=== PATIENT | male | born 1930 | race Caucasian/White ===

== ENCOUNTER 2016-11-09 01:20 | Day surgery (SDC) | payer MEDICARE ==
[~2016-11-09] VITALS: Ht 185.4 cm; Wt 90.0 kg
[2016-11-09] VITALS (11 sets, daily range): BP systolic 101–153; BP diastolic 52–92; PULSE 63–73; RESP 14–23; O2SAT 95–96
[~2016-11-09 01:20] MED LIST: ASPI325T32 PO; CARB1TAB14 PO; CYAN100T PO; ERGO400T7 PO; HYDR25TA4 PO; LISI40TA PO; OMEG500C PO
[2016-11-09] MEDS ORDERED: 0.9% Sodium Chloride 1,000 ML IV ONE (06:56)
[2016-11-09] MEDS ORDERED: diphenhydrAMINE 25 mg Capsule PO ONE (07:00)
[2016-11-09 08:03] LABS: BASOPHILS % (AUTO) 0.3 % (0-3); MONOCYTES % (AUTO) 5.7 % (4-12); Mean Corpuscular Hemoglobin 28.3 pg (27.0-35.0); Mean Corpuscular Volume 87.9 fL (81-100); NEUTROPHILS % (AUTO) 70.7 % (40-74); Platelet Count 218 bil/L (150-400)
[2016-11-09 08:19] LABS: INR 0.96 ratio
[2016-11-09] MEDS ORDERED: Heparin 5,000 Units/500 mL NS Premix IV ONE ×3 (09:16→11:12)
[2016-11-09] MEDS ORDERED: Heparin 1,000 Units/500 mL NS Premix IV ONE ×2 (09:16→11:12)
[2016-11-09] MEDS ORDERED: fentaNYL-PF 50 mCg/mL 2 mL Inj ONE ×3 (09:33→11:33)
[2016-11-09] MEDS ORDERED: Nitroglycerin 50,000 mcg/250 mL D5W Premix IV ONE ×2 (09:40→11:12)
[2016-11-09] MEDS ORDERED: Heparin 1,000 Unit/mL 10 mL Inj ONE ×2 (10:26→11:12)
[2016-11-09] MEDS ORDERED: METO25TA6 PO (15:15)
[2016-11-09] MEDS ORDERED: LIP40 PO (15:15)
--- NOTE | 2016-11-09 16:42 | DI95 ---
[address] [address] INTERVENTIONAL CARDIAC CATHETERIZATION PATIENT: JIMENEZ DE DIOS : 1930 MR#: [id number] ADMIT: 11/09/2016 JOB ID: [id number] DOS:11/09/16 PROCEDURE: Selective right and left coronary angiography, left heart catheterization, attempted percutaneous intervention on the first obtuse marginal branch of the circumflex. INDICATION: Abnormal stress test. PROCEDURAL DETAILS: The procedure was done via right femoral approach using a 6-Vietnamese system. ANGIOGRAPHIC FINDINGS: 1. Left main short. No significant disease. 2. LAD In its mid to proximal segment has disease of about 30% to 40%. LAD is a very tortuous vessel. 3. The ramus intermedius is a moderate-caliber vessel. In its ostium and proximal part, it has a 60% to 70% lesion. 4. Circumflex is nondominant. The first large obtuse marginal branch is totally occluded. It comes off at an adverse angle and then appears to make a tight 180-degree turn. 5. The right coronary artery is a moderate caliber vessel. It has a proctor's crook in the beginning. Distally it has a 50% to 60% lesion. 6. Left heart catheterization revealed an LVEDP of 8. There was no gradient upon pullback. LVEF is estimated to be 60%. INTERVENTIONAL REPORT: We made a brief attempt to open up the obtuse marginal branch. We started off with a Voda guide and a Runthrough wire which was placed in the distal circumflex. A Choice PT wire was then used to get into this totally occluded branch which we successfully were able to. However, because of tortuosity and the total occlusion, we could not advance the wire. A Fine Cross was then used for backup support. Despite that, we could not advance the wire. There was really no support and the wire kept prolapsing back into the circumflex. Procedure was then terminated. In summary, this gentleman has moderately severe disease in the ostium of his ramus intermedius and the circumflex is totally occluded. His RCA has borderline lesion and his LAD has mild to moderate blocking. The best treatment for this would be aggressive medical therapy. If his symptoms progress, consideration can be given to bypass grafting. OWEN
--- NOTE | 2016-11-09 18:00 | NUR ---
Pt discharged to home, accompanied by family member. Pt's VSS, Rt groin puncture site CDI, IV's discontinued intact. Pt given all discharge instructions and had no further questions at time of d/c.
== END 2016-11-09 23:59 | disposition home or self-care (01) ==
LOC: SOUO 01:20
PROVIDERS: ATTEND Internal Medicine Cardiovascular Disease
DX: I25.10 Atherosclerotic heart disease of native coronary artery without angina pectoris (principal); I25.82 Chronic total occlusion of coronary artery; I25.9 Chronic ischemic heart disease, unspecified; I44.0 Atrioventricular block, first degree; I10 Essential (primary) hypertension; I48.91 Unspecified atrial fibrillation; N40.1 Benign prostatic hyperplasia with lower urinary tract symptoms; Z79.82 Long term (current) use of aspirin
CPT/HCPCS: 80048; 85025; 85610; 93458; 99152; 99153; C1760; C1769; C1887; J1644; J2060; J2250; J3010; J7030; Q9967

== ENCOUNTER 2016-11-18 11:41 | Inpatient (IN) | payer MEDICARE ==
[2016-11-18] VITALS (7 sets, daily range): BP systolic 110–131; BP diastolic 49–72; PULSE 41–67; RESP 14–24; O2SAT 94–98
[~2016-11-18] VITALS: Ht 188 cm; Wt 92.6 kg
[~2016-11-18 11:41] MED LIST changes: -CARB1TAB14 PO; +LIP40 PO; +METO25TA6 PO
--- NOTE | 2016-11-18 12:01 | ED.REPORT ---
HPI-Chest Pain 40 and Over Date of Service Nov 18, 2016 ED Provider: Dr. Redding 86 y/o male pt with a hx of CAD, HTN, paroxysmal A-fib presents to the ED after his PCP noticed a 7 second pause in his heart rate as per Holter monitor. Pt also complains of mild SOB, exacerbated by walking but denies chest pain, lightheadedness and dizziness. He was recommended to come here by Motor Builder Assembler Dr. Hubbard for pacemaker placement. Nursing Notes Stated Complaint: PACU Nursing Notes Reviewed: Yes Allergies: Coded Allergies: No Known Allergies (Unverified Allergy, Unknown, 11/18/16) Scheduled Aspirin (Aspirin) 325 Mg Tablet 325 MG PO HS Atorvastatin (Lipitor) 40 Mg Tablet 20 MG PO QAM Cyanocobalamin (Vitamin B-12) (Vitamin B-12) 100 Mcg Tablet 100 MCG PO DAILY Ergocalciferol (Vitamin D2) (Vitamin D2) 400 Unit Tablet 400 UNIT PO DAILY Hydrochlorothiazide (Hydrochlorothiazide) 25 Mg Tablet 25 MG PO DAILY Lisinopril (Lisinopril) 40 Mg Tablet 40 MG PO DAILY Stephan-3 Fatty Acids/Fish Oil (Fish Oil Pearls Softgel) 1 Each Capsule 1 EACH PO DAILY General Time Seen by MD: 12:00 Chief Complaint Other (Sinus pause) Hx Obtained From: Patient Arrived By: Walk-in Sudden in Onset?: Yes Onset Occurred: Just prior to arrival Symptom Duration: Since onset Severity: Current: No pain currently Severity: Maximum: No pain Recent Healthcare: Recent doctor visit Similar Sx Previous: No Past Medical History Past Medical History CAD Arthritis Right Inguinal Hernia (s/p surgery) Paroxysmal a-fib Basal cell carcinoma Hypertension Past Surgical History Left Hip surgery Cataracts (surgically corrected) Smoking History Never Smoker Social History Alcohol Use: Denies alcohol use Ambulatory Status Independent Review of Systems Constitutional: Denies: Chills, Fever Respiratory: Reports: Shortness of breath, Denies: Non-productive cough Cardiovascular: Reports: Dyspnea on exertion, Denies: Chest pain GI: Denies: Abdominal pain, Nausea, Vomiting Neurologic: Denies: Dizziness, Lightheaded, Numbness Complete sys rev & neg: except as marked. Physical Exam Initial Vital Signs Vital Signs (First) Date Time Temp Pulse Resp B/P Pulse Ox O2 Delivery O2 Flow Rate FiO2 11/18/16 11:41 36.0 41 22 131/55 97 Room Air Initial VS: Reviewed, Vital signs abnormal Head / Eyes: Atraumatic, Normocephalic, PERRL ENT: Mucous membranes moist, Conjunctiva normal, No scleral icterus Neck: Supple, Full range of motion Extremities: Vascular intact, Neuro intact, No tenderness Skin: Warm, Dry, No cyanosis Neurologic: Alert, Oriented, Nonfocal Psychiatric: Mood/affect normal, Behavior normal, Normal thought content General/Constitutional: Awake, Alert, No acute distress, Cooperative Respiratory / Chest: Atraumatic, Breath sounds NL, Breath sounds = bilat, No respiratory distress, No rales, No rhonchi, No wheezing, No retractions Cardiovascular: Regular rhythm, Heart sounds NL, No murmurs Heart Rate / Rhythm: Positive: Bradycardia Trace edema bilaterally in lower extremities. Abdomen: Atraumatic, Soft, Non-tender Interpretation & Diagnostics Lab Results Interpretation Result Diagram: 11/18/16 1212 11/18/16 1212 Test 11/18/16 12:12 11/18/16 12:38 White Blood Count 6.6th/mm3 (3.8-10.1) Red Blood Count 4.95mil/mm3 (4.40-5.80) Hemoglobin 14.1g/dL (13.8-17.2) Hematocrit 43.2% (41.0-50.0) Mean Corpuscular Volume 87.3fL (81-100) Mean Corpuscular Hemoglobin 28.5pg (27.0-35.0) Mean Corpuscular Hemoglobin Concent 32.6% (32.0-37.0) Red Cell Distribution Width 14.1% (12.3-15.4) Platelet Count 179bil/L (150-400) Neutrophils (%) (Auto) 76.7% (40-74) Lymphocytes (%) (Auto) 14.9% (14-46) Monocytes (%) (Auto) 5.9% (4-12) Eosinophils (%) (Auto) 2.0% (0-5) Basophils (%) (Auto) 0.3% (0-3) Prothrombin Time 10.9sec (8.1-12.5) Prothromb Time International Ratio 1.02ratio Sodium Level 141mEq/L (134-144) Potassium Level 4.2mEq/L (3.5-5.2) Chloride Level 100mEq/L (97-108) Carbon Dioxide Level 25mmol/L (18-29) Blood Urea Nitrogen 27mg/dL (8-27) Creatinine 0.93mg/dL (0.76-1.27) Estimat Glomerular Filtration Rate 82mL/min (>59) Glucose Level 127mg/dL (60-99) Calcium Level 10.4mg/dL (8.5-10.1) Magnesium Level 1.7mg/dL (1.6-2.6) Total Bilirubin 0.6mg/dL (0.0-1.2) Aspartate Amino Transf (AST/SGOT) 18U/L (0-50) Alanine Aminotransferase (ALT/SGPT) 13U/L (0-44) Alkaline Phosphatase 88U/L (25-160) Troponin T < 0.010ug/L (0.0-0.011) Total Protein 7.7g/dL (6.4-8.4) Albumin 4.4g/dL (3.4-5.0) Thyroid Stimulating Hormone (TSH) 1.880uIU/mL (0.450-4.500) Free Thyroxine 1.32ng/dL (0.82-1.77) Hold Albert Top Tube Received (Received) ECG Interpretation ECG Interpretation: Sinus bradycardia rate 53 Right bundle branch block No ST elevation Possible ST depression in V3 Time: 12:13 Interpreted by: ED physician X-Ray Chest Interpretation Chest Xray Interpretation: IMPRESSION: No acute process. Dictated by: Ronald Boyer M.D. on 11/18/2016 at 13:35 Approved by: Ronald Boyer M.D. on 11/18/2016 at 13:35 View: Portable, 1 view Interpretation / Wet Read by: Interpret - Radiologist Re-Eval/Medical Decision Med Decision/Clinical Course 86-year-old male sent in by optical worker for pacemaker placement given Holter monitor with positives up to 7.5 seconds. Patient does report some shortness of breath but is otherwise asymptomatic. Bradycardic into the 30s on our monitor though asymptomatic. Discussed with optical worker who recommended admission for pacemaker placement. Troponins are negative. Source of Hx: Old records, Family Time of Eval: 14:11 Re-Evaluation/Progress Note: Pt rechecked. Pt informed of need for admission. Pt understands and agrees with plan for admission. All questions addressed. Consultation #1: Referral / Consult Name: Robert Hubbard MD Consulted With: Cardiology Call Returned at: 12:50 Floor Surfacer: Will see patient, Agrees with eval, Agrees with plan Note: Will arrange for pacemaker placement. Discussed the case prior to the patient arriving. Consultation #2: Referral / Consult Name: Pedro Carreno MD Call Returned at: 13:45 Floor Surfacer: Will see patient, Agrees with eval, Agrees with plan, Accepts admit Counseled Regarding: Diagnosis, Lab results, Need for admission Discharge & Departure Primary Impression: Bradycardia Additional Impression: Sinus pause Disposition: ADMITTED TO HOSPITAL Discharge Condition All VS Reviewed: Yes Condition: Stable Referrals: Andrés Guevara MD (PCP) Crit Care Except Billable Proc Time Spent: 105-134 minutes (125) Services Performed: Patient management by me, Time spent at bedside, Reviewing test results, Reviewing imaging, Discussing patient care, Documentation in record, Time with fam/surrogate Scribe Attestation Portions of this note were transcribed by Corinne Gamez and Damon Do. I, , personally performed the history, physical exam and medical decision-making;I reviewed and confirmed the accuracy of the information in the transcribed note. Signed by Corinne Gamez and Clif Morse. 11/18/16 14:22. copies to: Andrés Guevara MD, Ben M MD Nov 18, 2016 12:01 Corinne Gamez Nov 18, 2016 12:09 DAMON DO Nov 18, 2016 13:56
[2016-11-18 12:23] LABS: BASOPHILS % (AUTO) 0.3 % (0-3); MONOCYTES % (AUTO) 5.9 % (4-12); Mean Corpuscular Hemoglobin 28.5 pg (27.0-35.0); Mean Corpuscular Volume 87.3 fL (81-100); NEUTROPHILS % (AUTO) 76.7 % (40-74); Platelet Count 179 bil/L (150-400)
[2016-11-18 13:19] LABS: TROPONIN T < 0.010 ug/L (0.0-0.011)
[2016-11-18 13:22] LABS: Magnesium 1.7 mg/dL (1.6-2.6)
--- NOTE | 2016-11-18 13:37 | DRSVH ---
PROCEDURE: X-RAY CHEST ONE VIEW, PORTABLE ([id number]) INDICATIONS: chest pain , low heartrate TECHNIQUE: One view of the chest was acquired. COMPARISON: None. FINDINGS: Surgical changes and devices: None. Lungs and pleura: No pleural effusions or pneumothorax. Lungs are clear. Mediastinum: Mediastinal contours appear normal. Heart size is normal. Bones and chest wall: No suspicious bony lesions. Overlying soft tissues appear unremarkable. IMPRESSION: No acute process. Dictated by: Ronald Boyer M.D. on 11/18/2016 at 13:35 Approved by: Ronald Boyer M.D. on 11/18/2016 at 13:35
[2016-11-18 14:36] LABS: INR 1.02 ratio
[2016-11-18] MEDS ORDERED: OMEG-101 PO (14:37)
[2016-11-18] MEDS ORDERED: Alum-Mag Hydrox-Simeth 30 mL Suspension PO PRN ×2 (14:40→14:55)
[2016-11-18] MEDS ORDERED: Ondansetron 2 mg/mL 2 mL Inj IVPUSH PRN (14:40)
[2016-11-18] MEDS ORDERED: Polyethylene Glycol (PEG) 17 Gm Powder PO PRN (14:55)
--- NOTE | 2016-11-18 15:33 | NUR ---
Admit to [facility] Patient report called by ED nurse to [facility] nurse. Patient arrived t [facility] room 3007 via gurney. Patient was assisted by staff to bed. Patient is a 1-2 person extensive assist with FWW with transfer. Patient oriented to room, call light system, staff, visiting hours and TV. Patient denied pain, SOB, or nausea. Patient vital signs stable with the exception of HR fluctuating between 47-61. Patient nephew in room at time of admit.
--- NOTE | 2016-11-18 15:34 | CONS ---
[address] [address] CONSULTATION REPORT PATIENT: JIMENEZ DE DIOS : 1930 MR#: [id number] ADMIT: 11/18/2016 JOB ID: [id number] DATE OF SERVICE: 11/18/2016 CARDIOLOGY CONSULTATION: CHIEF COMPLAINT: Abnormal results on cardiac monitoring. HISTORY OF PRESENT ILLNESS: This 86-year-old gentleman was brought to the hospital urgently from his home because of his ZIO monitor showing pauses of up to 7-1/2 seconds. These occurred during daytime. The patient is denying any dizziness, lightheadedness or passing out. For most part, he is homebound. He lives in a longterm. He is not very active. He was initially referred to me about three weeks ago for cardiac evaluation. He needs to have his right hip replaced. His stress test was abnormal and showed myocardial ischemia in inferolateral segments. He subsequently underwent angiography. He was found to have an occluded obtuse marginal branch which came off at a very adverse angle. It was also calcified. A brief attempt was made to recanalize it. When it became apparent that this would be a long and complex procedure, the intervention was canceled at that point. Since then, the patient is feeling much better and has not had any complaints. In fact, he was a little bit surprised that he was called to the hospital. PAST MEDICAL HISTORY: Significant for: 1. Atrial fibrillation. 2. Hypertension. 3. BPH. 4. Coronary artery disease. 5. Parkinson disease. MEDICATIONS AT HOME: 1. Aspirin. 2. Carbidopa 25/levodopa 100. 3. Vitamin D 2 fish oil. 4. Hydrochlorothiazide. 5. Lisinopril 20 mg daily. 6. Vitamin B12. PERSONAL HISTORY: Nonsmoker, nondrinker. FAMILY HISTORY: Noncontributory. ALLERGIES: None. REVIEW OF SYSTEMS: Comprehensive review of system was done. Pertinent positives are fatigue and muscle weakness and easy bruising. Rest is as per HPI. PHYSICAL EXAMINATION: On examination elderly gentleman who looks his age. Pulse 60, irregular, blood pressure 120/60. Neck: Supple. No JVD. Chest: Clear. Heart sounds: S1-S2 are irregular. There are no gallops. Abdomen: Soft. Extremities: Negative for CCE. CHURCH ADMINISTRATOR: Awake, alert, oriented. A resting tremor is noted. Tele strips while the patient is in the ED show no significant pauses. At times it appears that the patient might be in a Wenckebach type for rhythm though the baseline is very poor on those and this could be AFib with irregularity. ASSESSMENT AND PLAN: This gentleman is having long pauses of up to 7 seconds. He needs a pacemaker. I have discussed this with the patient. He is willing to proceed ahead with the same. Dr. Grajeda has been informed. Once he has his pacemaker, he can then proceed ahead with his hip replacement. In the interim, I would recommend checking his TSH as well.
[2016-11-18] MEDS: Sodium Chloride LOK Flush 10 mL Syringe IVFLUSH SCH (16:31)
--- NOTE | 2016-11-18 17:18 | PCM.HPMED ---
Subjective Date of Service Nov 18, 2016 Primary Provider: Admitting Physician: Pedro Carreno MD Primary Care Physician: Andrés Guevara MD Attending Physician: Pedro Carreno MD Admit Status: From the Emergency Department, Full Admit, Admit to Blue Team Chief Complaint: Patient was called in by entertainment manager due to bradycardia and a pulse of 7.5 seconds on ZIO monitor History of Present Illness: 86-year-old gentleman with past medical history of CAD, hypertension, atrial fibrillation was called in by entertainment manager due to bradycardia and a pause of 7.5 seconds on ZIO monitor . Patient denies any symptoms currently. Patient started to have exertional dyspnea in July. He was also being evaluated for hip replacement. He was sent for cardiology evaluation due to abnormal stress test. He underwent cardiac cath on 11/09/16 and was found 1200 mL of disease in the ostium of ramus intermedius and completely occluded circumflex. An attempt to open was unsuccessful. Patient states his exertional dyspnea actually resolved after his cardiac catheterization on 11/09. He was placed on ZIO monitor prior to cardiac cath. He was noted to have 7.5 seconds of pause and called in for evaluation of pacemaker. Denies chest pain. He is still interested in undergoing hip replacement. ED course: Junctional rhythm on EKG, A. fib with slow rate on monitor,rate as low as high 30's. Remained asymptomatic. Hemodynamically stable. Lab unremarkable Review of Systems: A compressive review of systems performed. Pertinent positives and negatives included in history of present illness. Allergies Coded Allergies: No Known Allergies (Unverified Allergy, Unknown, 11/18/16) Home Medications Aspirin (Aspirin) 325 Mg Tablet 325 MG PO HS Atorvastatin (Lipitor) 40 Mg Tablet 20 MG PO QAM Cyanocobalamin (Vitamin B-12) (Vitamin B-12) 100 Mcg Tablet 100 MCG PO DAILY Ergocalciferol (Vitamin D2) (Vitamin D2) 400 Unit Tablet 400 UNIT PO DAILY Hydrochlorothiazide (Hydrochlorothiazide) 25 Mg Tablet 25 MG PO DAILY Lisinopril (Lisinopril) 40 Mg Tablet 40 MG PO DAILY Kirby-3 Fatty Acids/Fish Oil (Fish Oil Pearls Softgel) 1 Each Capsule 1 EACH PO DAILY PMH CAD diagnosed recently on medical treatment Arthritis Right Inguinal Hernia (s/p surgery) Paroxysmal a-fib used to be on warfarin. Stopped due to bleeding complications by patient years ago Basal cell carcinoma Hypertension Surgical History Left Hip surgery Cataracts (surgically corrected) Bilateral inguinal hernia repair Appendectomy in 50's Family History Reviewed and unremarkable Social History Hx Alcohol Use: No Hx Substance Use: No Smoking Status: Never Smoker Exam Vital Signs Vital Sign - Last Date Time Temp Pulse Resp B/P Pulse Ox O2 Delivery O2 Flow Rate FiO2 11/18/16 15:56 36.6 55 24 125/72 96 Room Air Exam Gen. patient is lying comfortably in hospital bed HEENT: Head is normocephalic atraumatic, Pupils equal and reactive, extraocular movements intact, Lungs clear to auscultation bilaterally Heart bradycardic, no murmur Abdomen soft nontender without hepatosplenomegaly Extremities pulses are present dorsalis pedis posterior tibialis and radial. 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 -TSH pending -Pacing pad in place -for pacemaker placement probably tomorrow -Atropine when necessary when symptomatic, does not seem he needs # Recent diagnosis of CAD -Continue aspirin and statin -no BB due to bradycardia # History of atrial fibrillation -Anticoagulation stopped by patient due to bleeding #Osteoarthritis -Pain controlled Full code ,names Clotilde Dia as POA tel [phone] Patient admitted under inpatient status with expected length of stay > 2 midnights for severity of present symptoms, complexities of treatment plan and risk for adverse events Pedro Carreno MD Nov 18, 2016 17:18
[2016-11-19] VITALS (15 sets, daily range): BP systolic 104–136; BP diastolic 47–69; PULSE 52–71; RESP 16–23; O2SAT 95–98
[2016-11-19] MEDS: Sodium Chloride LOK Flush 10 mL Syringe IVFLUSH SCH ×3 (00:15→17:55)
--- NOTE | 2016-11-19 05:03 | NUR ---
bradycardia Tele - pepper mostly in the 40s with pauses, but dipped into the 20's few times per tele rn. pt asymptomatic. pacer pads on pt's chest. NPO since midnight for pacer placement this AM. pt compliant. denies pain or discomfort. uses urinal in bed. bed alarm on for safety.
[2016-11-19 05:47] LABS: BASOPHILS % (AUTO) 0.2 % (0-3); EOSINOPHILS % (AUTO) 2.8 % (0-5); MONOCYTES % (AUTO) 8.9 % (4-12); Mean Corpuscular Hemoglobin 28.7 pg (27.0-35.0); Mean Corpuscular Volume 87.7 fL (81-100); NEUTROPHILS % (AUTO) 65.7 % (40-74); Platelet Count 137 bil/L (150-400)
[2016-11-19] MEDS ORDERED: Vancomycin Inj 1,000 MG in IV Premix 1 EACH IV ONE (06:00)
[2016-11-19 06:03] LABS: INR 1.05 ratio
--- NOTE | 2016-11-19 06:23 | NUR ---
pause Pt had a 6sec pause around 04:34 per teletypesetter operator; remains asymptomatic. able to wake up w/o difficulty and w/o complaints. Tele SB now in 40s-50s with intermittent short pauses. will closely monitor.
[2016-11-19] MEDS: Omega-3 Fatty Acids 1,000 mg Capsule PO SCH (07:38)
[2016-11-19] MEDS ORDERED: Lisinopril 40 Tablet PO SCH (08:30)
--- NOTE | 2016-11-19 10:05 | NUR ---
Off the unit Pt taken off the unit to clam bed laborer for pacer placement, IV x [address], PJ bottoms and undergarments removed. NO complains of increased chest discomfrt/pressure. VSS. Vancomycin pulled, will accompany pt for administration in clam bed laborer. Addendum: 11/19/16 at 1428 by NEDA NEGRON RN Back on unit, no complains of increased pain or SOB. Sling in place. IV SL, RA. Micropore dressing C/D/I no signs of bleeding or hematoma. Call light within reach, will continue to monitor
[2016-11-19] MEDS ORDERED: fentaNYL-PF 50 mCg/mL 2 mL Inj ONE (10:19)
[2016-11-19] MEDS ORDERED: Vancomycin 1,000 mg Inj ONE (10:25)
[2016-11-19] MEDS ORDERED: Water for Injection 50 ML IV ONE (10:25)
[2016-11-19] MEDS ORDERED: 0.9% Sodium Chloride 250 ML ONE (10:25)
[2016-11-19] MEDS ORDERED: Heparin 5,000 Units/500 mL NS Premix IV ONE (10:25)
[2016-11-19] MEDS ORDERED: Bupivacaine-MPF 0.5% 30 mL Inj ONE (10:31)
--- NOTE | 2016-11-19 11:54 | DRSVH ---
[facility] [address] [place] [address] Echocardiogram Report Name: JIMENEZ DE DIOS [facility]Study [facility] e: 11/19/2016 Height: 74 in Hospital Exam Location: [facility] Weight: 204 lb Gender: Male BSA: 2.2 m2 : 1930 Age: 86 yrs BP: 107/54 mmHg Reason For Study: MOBITZ II AV BLOCK Ordering Physician: Performed By: Raghavendra Hill Interpretation Summary 1) Normal left ventricular thickness, size, wall motion, and systolic function (EF 55-60%). 2) Mildly dilated right ventricle with normal function. 3) No significant valvular abnormalities. 4) Mildly elevated pulmonary artery pressures, with systolic pulmonary artery pressures of 37mmHg + CVP. 5) Borderline dilated aortic root at the sinus of valsalva (diameter 4.1cm). 6) No prior Echo available for comparison. Procedure: A two-dimensional transthoracic echocardiogram with color flow and Doppler was performed. The study quality was technically adequate. There is no prior echocardiogram noted for this patient. The patient was in sinus bradycardia with heart rates between 54-64 bpm during the exam. Left Ventricle: The left ventricle is normal in size. There is normal left ventricular wall thickness. The ejection fraction is estimated to be 55-60%. Left ventricular systolic function is normal. There are no obvious focal wall motion abnormalities noted but poor endocardial definition reduces the sensitivity for the detection of such. Right Ventricle: The right ventricle is mildly dilated. The right ventricular systolic function is normal. Atria: The left atrium is not well visualized. Right atrium not well visualized. There is no Doppler evidence for an atrial septal defect. Mitral Valve: The mitral valve is normal. There is no mitral regurgitation noted. Aortic Valve: The aortic valve is normal in structure and function. There is no aortic valve stenosis. No aortic regurgitation is present. Tricuspid Valve: The tricuspid valve is normal. There is mild tricuspid regurgitation. Right ventricular systolic pressure is estimated to be 37 mmHg plus the clinically estimated CVP which cannot be estimated on this exam. Pulmonic Valve: The pulmonic valve is not well seen, but is grossly normal. There is mild pulmonic regurgitation. Great Vessels: The aortic Sinus(es) of Valsalva are borderline dilated. The ascending aorta is normal in size. The aortic arch is at the upper limits of normal in size. The pulmonary artery is normal size. The inferior vena cava was not well visualized. Pericardium/ Pleura There is no pericardial effusion. There is no pleural effusion. MMode/2D Measurements & Calculations LVIDd LVOT diam: 2.3 cm LV arango. diameter/BSA LV sys. diameter/BSA : 5.0 cm AoV Openin.0 cm (cm/m^2): 2.3 (cm/m^2): 1.5 LVIDs Ao root diam: 4.1 cm : 3.3 cm asc Aorta Diam FS: 35.3 % EPSS Ao Arch Diam (Prox : 1.cm Trans): 3.4 cm IVSd : 1.cm LVPWd : 0.8cm Doppler Measurements & Calculations Ao V2 max: 119.7 cm/secMV E max antolin MV E/A: 0.76 TR max antolin Ao max P.7 mmHg : 56.7 cm/sec Med Peak E' Antolin : 303.0 cm/sec Ao mean P.1 mmHg MV A max antolin TR max PG LVOT Max Antolin : 75.1 cm/sec E/E' med: 9.2 : 36.7 mmHg : 77.8 cm/sec Lat Peak E' Antolin PA V2 max : 121.1 cm/sec LARRY(I,D): 2.8 cm E/E' lat: 7.4 PA mean PG sev ratio: 0.66 E/e' average: 8.3 : 3.4 mmHg MV dec time: 0.25 sec Ao V2 mean LV V1 max PG PA V2 mean : 84.6 cm/sec : 88.1 cm/sec Ao V2 VTI LV V1 VTI: 15.7 cmPA pr(Accel) : 38.8 mmHg LARRY(V,D): 2.8 cm2 LARRY indexed to [facility] (cm^2/m^2): 1.3 Reading Physician:11:53 AM
[2016-11-19] MEDS ORDERED: HYDROcodone-APAP 5-325 mg Tablet PO PRN (12:00)
--- NOTE | 2016-11-19 12:57 | NUR ---
PILO Report called from Aida DAIGLE, dual chamber pacer placed L Upper chest, Micropore dressing C/D/I, No complains of increased pain. Pt sitting up and eating lunch, has not voided at this time. Able to come off bedrest no sooner than 1410. Sling to be placed prior to [place] [facility]
--- NOTE | 2016-11-19 13:18 | DRSVH ---
PROCEDURE: X-RAY CHEST ONE VIEW, PORTABLE ([id number]) INDICATIONS: For new leads placed TECHNIQUE: One view of the chest was acquired. COMPARISON: [facility], CR, XR CHEST 1VW (PORTABLE), 11/18/2016, 12:31. FINDINGS: Surgical changes and devices: Left cardiac pacer present in expected position. Lungs and pleura: No pleural effusions or pneumothorax. Lungs are clear. Mediastinum: Mediastinal contours appear normal. Heart size is normal. Bones and chest wall: No suspicious bony lesions. Overlying soft tissues appear unremarkable. IMPRESSION: No immediate complications status post cardiac pacemaker placement. Dictated by: Asim CARSON Interpreted: Elayne Montoya MD on 11/19/2016 at 13:17 Transcribed by: JASON on 11/19/2016 at 13:18 Approved by: Elayne Montoya M.D. on 11/23/2016 at 17:03
--- NOTE | 2016-11-19 14:32 | NUR ---
PILO POST PACEMAKER PT WAS RECEIVED FROM INSPECTOR FIBROUS WALLBOARD AT 1210. LEFT UPPER CHEST DRSG HAS REMAINED C/D/I. POST CXR AND EKG WERE OBTAINED. PT AWAKE AND TAKING MEAL WITHOUT DIFFICULTY. HE DENIES ANY PAIN. SLING WAS PLACED TO LEFT ARM AND PT IS AWARE OF RESTRICTIONS FOR THAT ARM. REPORT CALLED TO NEDA Garcia RN AND PT AND HIS NURSING CARE WERE TRANSFERRED BACK TO ROOM 3007 AT 1410. TELE CONFIRMED WITH WOOD FINISHER APPRENTICE.
[2016-11-19] MEDS: 0.9% Sodium Chloride 1,000 ML IV SCH (14:48)
--- NOTE | 2016-11-19 15:24 | PCM.PNMED ---
Subjective Date of Service Nov 19, 2016 Subjective Remains asymptomatic. Had pause of 6 seconds overnight. Awaiting pacemaker placement Exam Vital Signs Vital Sign - Last Date Time Temp Pulse Resp B/P Pulse Ox O2 Delivery O2 Flow Rate FiO2 11/19/16 15:00 36.6 63 18 114/65 97 Room Air Intake and Output 11/18/16 11/18/16 11/19/16 Cumulative From/Thru 15:00 23:00 07:00 11/18/16 11:41 - 11/19/16 06:37 Intake Total 236 ml 700 ml 936 ml Output Total 275 ml 500 ml 775 ml Balance -39 ml 200 ml 161 ml Intake Oral 236 ml 700 ml 936 ml Output Urine Total 275 ml 500 ml 775 ml Exam Gen. patient is lying comfortably in hospital bed HEENT: Head is normocephalic atraumatic, Pupils equal and reactive, extraocular movements intact, Lungs clear to auscultation bilaterally Heart bradycardic, no murmur Abdomen soft nontender without hepatosplenomegaly Extremities pulses are present dorsalis pedis posterior tibialis and radial. tSkin is warm and dry there are no rashes, Psych alert and oriented to person place and time Neuro cranial nerves II through XII are grossly intact Lymph: There is no lymphadenopathy appreciated in the cervical supra infraclavicular regions : no peters IVs and Medications Medications Reviewed: Medications were reviewed in detail Lab and Diagnostics Result Diagram: 11/19/1652411/19/16524 Cardiac Echo Impressions Interpretation Summary 1) Normal left ventricular thickness, size, wall motion, and systolic function (EF 55-60%). 2) Mildly dilated right ventricle with normal function. 3) No significant valvular abnormalities. 4) Mildly elevated pulmonary artery pressures, with systolic pulmonary artery pressures of 37mmHg + CVP. 5) Borderline dilated aortic root at the sinus of valsalva (diameter 4.1cm). 6) No prior Echo available for comparison. Assessment & Plan 86-year-old gentleman with past medical history of CAD, hypertension, atrial fibrillation was called in by check out clerk due to bradycardia and a pause of 7.5 seconds on ZIO monitor # Bradycardia and 7.5 second pause due to tachybradycardia syndrome -TSH 1.88 -Pacing pad in place -for pacemaker placement today -Atropine when necessary when symptomatic, does not seem he needs # Recent diagnosis of CAD -Continue aspirin and statin -no BB due to bradycardia # History of atrial fibrillation -Anticoagulation stopped by patient due to bleeding #Osteoarthritis -Pain controlled -Patient undergoing evaluation for right hip replacement out patient. Full code ,names Clotilde Dia as POA tel [phone] Patient admitted under inpatient status with expected length of stay > 2 midnights for severity of present symptoms, complexities of treatment plan and risk for adverse events Disposition: Possible discharge tomorrow Pedro Carreno MD Nov 19, 2016 15:24
--- NOTE | 2016-11-19 21:06 | OP ---
[address] [address] OPERATIVE REPORT PATIENT: JIMENEZ DE DIOS : 1930 MR#: [id number] ADMIT: 11/18/2016 JOB ID: [id number] DATE OF SURGERY: 11/19/2016 PREOPERATIVE DIAGNOSIS(ES): 1. Sick sinus syndrome. 2. Mobitz II atrioventricular block. POSTOPERATIVE DIAGNOSIS(ES): 1. Sick sinus syndrome. 2. Mobitz II atrioventricular block. PROCEDURES PERFORMED: 1. Dual-chamber pacemaker implantation. 2. Left upper extremity venogram. 3. Fluoroscopy. SURGEON: Herbert Grajeda MD, executive talent acquisition consultant attending. DIRECTOR PATIENT: 1. Marlin Ricci MD. intervention cardiology attending. 2. Adrian Arreaga. IMPLANTED DEVICES: 1. [employer] pulse generator, model AN2576, serial #[id number]. 2. Right atrial lead, [employer], 2088 TC 52 cm, serial #[id number]. 3. RV lead [employer] 2088 TC, 58 cm, serial #[id number]. ANESTHESIA: Bolus dosing of Versed and fentanyl were utilized for an appropriate level of sedation. INDICATION: The patient is a pleasant 86-year-old man with a structurally normal heart, coronary artery disease, sick sinus syndrome and Mobitz II AV block. After discussion of risks and benefits of pacemaker implantation, he opted to proceed. PROCEDURAL DESCRIPTION: Following informed consent, the patient was taken to the EP laboratory in a fasting nonsedated state, where he was prepped and draped in usual sterile fashion. The left was infiltrated with 40 cc of a 50/50 mixture of bupivacaine and lidocaine. Once adequate anesthesia had been achieved, a 3 cm transverse incision was performed 2 cm below the left clavicle. Dissection was carried down to the pectoralis fascia. A pocket was then fashioned using termination electrocautery and blunt dissection. Once adequate hemostasis had been achieved, and under venographic guidance, the left axillary vein was cannulated with guide wires. Over the first of these, a 6-Mohawk tear-away sheath was advanced. Once the guidewire was removed, an active fixation lead was advanced to the RV outflow tract and ultimately the RV apex. The lead was affixed in position using associated active fixation screw. It was connected to the external analyzer and R waves, impedance, capture threshold was checked to 10 V and there was no evidence of diaphragmatic stimulation. Attention was now paid to his rate atrial lead. Over the other previously deployed J guidewire, another 6-Mohawk tear-away sheath was advanced. Once the guide wire was removed, an active fixation lead was advanced to the right atrial appendage. It was affixed in position using associated active fixation screw. It was connected to the external analyzer and demonstrated appropriately sensed P waves, impedance, capture threshold. Lead was checked to 10 VOMITING, and there was no evidence of diaphragmatic stimulation. Once the position and redundancy of both leads had been confirmed in multiple restricted fluoroscopic views, the leads were anchored to the prepectoralis fascia using the associated anchoring sleeves and two heavy Ethibond sutures. The pocket was then copiously irrigated with antibiotic solution. The leads were connected to a generator. Images of heart was affixed to the floor of the pocket using 1-0 Ti-Cron suture. The incision was then closed with running layers of absorbable suture. The wound was dressed with skin adhesive dressing. At the end of procedure, the needle, sponge, instrument counts were all correct. COMPLICATIONS: None. ESTIMATED BLOOD LOSS: Negligible. DEVICE MEASURED DATA: 1. Right atrial lead 2.1 mV, 590 ohms, 0.75 V at 0.4 msec. 2. RV lead 6 mV 550 ohms, 0.75 V at 0.4 msec. FINAL PROGRAM PARAMETERS: DDD 60-130 beats per minute. IMPRESSION: Successful dual-chamber pacemaker implantation. PLAN: 1. Stat portable chest x-ray. 2. PA and lateral chest x-ray. 3. Device interrogation. 4. IV vancomycin through tomorrow. 5. Doxycycline x7 days. 6. Wound check in one week. ATTENDING STATEMENT: Herbert Grajeda MD, was present for and/or supervised/performed all aspects of this procedure.
[2016-11-20] MEDS ORDERED: Vancomycin Inj 1,000 MG in IV Premix 1 EACH IV ONE
[2016-11-20] MEDS: 0.9% Sodium Chloride 1,000 ML IV SCH ×2 (00:11→07:59)
[2016-11-20 00:30] VITALS: BP 118/66; PULSE 82; RESP 18; O2SAT 97
[2016-11-20] MEDS: Sodium Chloride LOK Flush 10 mL Syringe IVFLUSH SCH (00:30)
[2016-11-20 03:37] VITALS: PULSE 67
--- NOTE | 2016-11-20 04:18 | NUR ---
Pain Patient Post op day 1. Dressing clean dry and intact. L arm in sling. Patient had a slight temperature yesterday that has since subsided. Patient denies pain at this time. Tele AV Paced in the 60's. Patient A&Ox3. X-ray schedule for [id number] this morning. Vitals stable.
[2016-11-20 05:29] VITALS: BP 124/67; PULSE 95; RESP 18; O2SAT 98
[2016-11-20 08:00] VITALS: PULSE 79
[2016-11-20] MEDS: Omega-3 Fatty Acids 1,000 mg Capsule PO SCH (08:18)
[2016-11-20 08:56] VITALS: BP 119/62; PULSE 69; RESP 20; O2SAT 95
--- NOTE | 2016-11-20 09:42 | DRSVH ---
PROCEDURE: X-RAY CHEST ONE VIEW, PORTABLE ([id number]) INDICATIONS: new lead placement PT UNABLE TO STAND PER NURSE TECHNIQUE: One view of the chest was acquired. COMPARISON: [facility] [place], CR, CHEST 2VW, 06/01/2007, 9:15. [facility], CR, XR CHEST 1VW (PORTABLE), 11/19/2016, 12:13. FINDINGS: Surgical changes and devices: Stable positioning of dual chamber left cardiac pacer.. Lungs and pleura: No pleural effusions or pneumothorax. Lungs are clear. Mediastinum: Mediastinal contours appear normal. Heart size is normal. Bones and chest wall: No suspicious bony lesions. Overlying soft tissues appear unremarkable. IMPRESSION: Stable chest post left cardiac pacer placement. Dictated by: Asim Salas RR Interpreted: Omaira Peterson MD on 11/20/2016 at 9:41 Transcribed by: JOSH on 11/20/2016 at 9:41 Approved by: Omaira Peterson MD, PhD on 11/20/2016 at 12:22
--- NOTE | 2016-11-20 12:34 | PCM.DIMED ---
Discharge Instructions Date of Service Nov 20, 2016 Dates of Hospitalization Nov 18, 2016 at 14:42 Discharge Diagnosis Discharge Diagnosis # Bradycardia and 7.5 second pause due to tachybradycardia syndrome s/p pacemaker placement on 11/19 # Recent diagnosis of CAD # History of atrial fibrillation not on anticoagulation #Osteoarthritis Diet Low fat, Low Sodium, Heart Healthy Activity Limited until seen by PCP, Home Health Phyical Therapy Call your provider Fever or Chills, Shortness of breath, Bleeding, Chest pain, Vomitting, Excessive diarrhea, Weakness (unilateral) Patient Instructions you were hospitalized due to bradycardia secondary to tachybradycardia syndrome. You underwent successful pacemaker placement on 11/19. Please continue doxycycline for 1 week. Please follow-up with Dr. Grajeda in 1 week. Physical therapist recommended halfway facility for rehabilitation which you declined. Please get home physical therapy. Follow-up plan Please follow-up with Dr. Grajeda in 1 week. Follow-up Provider: Andrés Guevara MD Follow-up with PCP in: 3 weeks Provider: Herbert Grajeda MD Follow-up in: 1 week Pedro Carreno MD Nov 20, 2016 12:34
[2016-11-20] MEDS ORDERED: DOXY-232 PO (12:35)
--- NOTE | 2016-11-20 12:40 | PCM.DC.MED ---
Discharge Summary Date of Service Nov 20, 2016 Dates of Hospitalization Date of Hospital Admission Nov 18, 2016 at 14:42 Date of Discharge: Nov 20, 2016 Providers: Admitting Physician: Pedro Johnson MD Primary Care Physician: Andrés Guevara MD Attending Physician: Pedro Johnson MD Diagnosis at Time of Discharge Diagnosis at Time of Discharge # Bradycardia and 7.5 second pause due to tachybradycardia syndrome s/p pacemaker placement on 11/19 # Recent diagnosis of CAD # History of atrial fibrillation not on anticoagulation #Osteoarthritis Consultations EP Dr Grajeda Procedures Cardiac Echo Impression Interpretation Summary 1) Normal left ventricular thickness, size, wall motion, and systolic function (EF 55-60%). 2) Mildly dilated right ventricle with normal function. 3) No significant valvular abnormalities. 4) Mildly elevated pulmonary artery pressures, with systolic pulmonary artery pressures of 37mmHg + CVP. 5) Borderline dilated aortic root at the sinus of valsalva (diameter 4.1cm). 6) No prior Echo available for comparison. Invasive Procedures DATE OF SURGERY: 11/19/2016 PREOPERATIVE DIAGNOSIS(ES): 1. Sick sinus syndrome. 2. Mobitz II atrioventricular block. POSTOPERATIVE DIAGNOSIS(ES): 1. Sick sinus syndrome. 2. Mobitz II atrioventricular block. PROCEDURES PERFORMED: 1. Dual-chamber pacemaker implantation. 2. Left upper extremity venogram. 3. Fluoroscopy. SURGEON: Herbert Grajeda MD, resist coater developer attending. CASTER INVESTMENT CASTING: 1. Marlin Ricci MD. intervention cardiology attending. 2. Adrian Arreaga. IMPLANTED DEVICES: 1. [employer] pulse generator, model BQ1952, serial #[id number]. 2. Right atrial lead, [employer], 2088 TC 52 cm, serial #[id number]. 3. RV lead [employer] 2088 TC, 58 cm, serial #[id number]. Brief History per HPI 86-year-old gentleman with past medical history of CAD, hypertension, atrial fibrillation was called in by access services representative due to bradycardia and a pause of 7.5 seconds on ZIO monitor . Patient denies any symptoms currently. Patient started to have exertional dyspnea in July. He was also being evaluated for hip replacement. He was sent for cardiology evaluation due to abnormal stress test. He underwent cardiac cath on 11/09/16 and was found 1200 mL of disease in the ostium of ramus intermedius and completely occluded circumflex. An attempt to open was unsuccessful. Patient states his exertional dyspnea actually resolved after his cardiac catheterization on 11/09. He was placed on ZIO monitor prior to cardiac cath. He was noted to have 7.5 seconds of pause and called in for evaluation of pacemaker. Denies chest pain. He is still interested in undergoing hip replacement. ED course: Junctional rhythm on EKG, A. fib with slow rate on monitor,rate as low as high 30's. Remained asymptomatic. Hemodynamically stable. Lab unremarkable Hospital Course 86-year-old gentleman with past medical history of CAD, hypertension, atrial fibrillation was called in by access services representative due to bradycardia and a pause of 7.5 seconds on ZIO monitor # Bradycardia and 7.5 second pause due to tachybradycardia syndrome. Underwent successful pacemaker placement on 11/19 -TSH 1.88 -Continue doxycycline for 1 week -Follow-up with Dr. Grajeda in 1 week -Pacemaker precautions explained. # Recent diagnosis of CAD -Continue aspirin and statin -no BB, HR stable # History of atrial fibrillation -Anticoagulation stopped by patient due to bleeding #Osteoarthritis -Pain controlled -Patient undergoing evaluation for right hip replacement out patient. Full code ,names Clotilde Dia as POA tel [phone] Disposition: discharge home. Physical therapy recommended care home facility placement for physical therapy but the patient declined. Will arrange for home physical therapy Condition on discharge stable Exam Vital Signs (Last) Date Time Temp Pulse Resp B/P Pulse Ox O2 Delivery O2 Flow Rate FiO2 11/20/16 08:56 37.0 69 20 119/62 95 Room Air Exam Gen. patient is lying comfortably in hospital bed HEENT: Head is normocephalic atraumatic, Pupils equal and reactive, extraocular movements intact, Lungs clear to auscultation bilaterally Heart regular rate, no murmur. Pacemaker site cleanly dressed Abdomen soft nontender without hepatosplenomegaly Extremities pulses are present dorsalis pedis posterior tibialis and radial. Skin is warm and dry there are no rashes, Psych alert and oriented to person place and time Neuro cranial nerves II through XII are grossly intact Lymph: There is no lymphadenopathy appreciated in the cervical supra infraclavicular regions : no peters Test 11/18/16 12:12 11/18/16 12:38 11/19/16 05:25 Magnesium Level 1.7mg/dL (1.6-2.6) Total Bilirubin 0.6mg/dL (0.0-1.2) Aspartate Amino Transf (AST/SGOT) 18U/L (0-50) Alanine Aminotransferase (ALT/SGPT) 13U/L (0-44) Alkaline Phosphatase 88U/L (25-160) Troponin T < 0.010ug/L (0.0-0.011) Total Protein 7.7g/dL (6.4-8.4) Albumin 4.4g/dL (3.4-5.0) Thyroid Stimulating Hormone (TSH) 1.880uIU/mL (0.450-4.500) Free Thyroxine 1.32ng/dL (0.82-1.77) Hold Albert Top Tube Received (Received) White Blood Count 5.7th/mm3 (3.8-10.1) Red Blood Count 4.46mil/mm3 (4.40-5.80) Hemoglobin 12.8g/dL (13.8-17.2) Hematocrit 39.1% (41.0-50.0) Mean Corpuscular Volume 87.7fL (81-100) Mean Corpuscular Hemoglobin 28.7pg (27.0-35.0) Mean Corpuscular Hemoglobin Concent 32.7% (32.0-37.0) Red Cell Distribution Width 13.9% (12.3-15.4) Platelet Count 137bil/L (150-400) Neutrophils (%) (Auto) 65.7% (40-74) Lymphocytes (%) (Auto) 22.2% (14-46) Monocytes (%) (Auto) 8.9% (4-12) Eosinophils (%) (Auto) 2.8% (0-5) Basophils (%) (Auto) 0.2% (0-3) Prothrombin Time 11.2sec (8.1-12.5) Prothromb Time International Ratio 1.05ratio Sodium Level 141mEq/L (134-144) Potassium Level 4.0mEq/L (3.5-5.2) Chloride Level 102mEq/L (97-108) Carbon Dioxide Level 25mmol/L (18-29) Blood Urea Nitrogen 22mg/dL (8-27) Creatinine 0.75mg/dL (0.76-1.27) Estimat Glomerular Filtration Rate 105mL/min (>59) Glucose Level 113mg/dL (60-99) Calcium Level 9.5mg/dL (8.5-10.1) Discharge Medications Discharge Medications Aspirin (Aspirin) 325 Mg Tablet 325 MG PO HS (Reported) Atorvastatin (Lipitor) 40 Mg Tablet 20 MG PO QAM (Reported) Cyanocobalamin (Vitamin B-12) (Vitamin B-12) 100 Mcg Tablet 100 MCG PO DAILY ( Reported) Doxycycline Monohyd (Doxycycline Monohyd) 100 Mg Tablet 100 MG PO BID Prescribed by: PEDRO JOHNSON MD Ergocalciferol (Vitamin D2) (Vitamin D2) 400 Unit Tablet 400 UNIT PO DAILY ( Reported) Hydrochlorothiazide (Hydrochlorothiazide) 25 Mg Tablet 25 MG PO DAILY (Reported ) Lisinopril (Lisinopril) 40 Mg Tablet 40 MG PO DAILY (Reported) [place]-3 Fatty Acids/Fish Oil (Fish Oil Pearls Softgel) 1 Each Capsule 1 EACH PO DAILY (Reported) Followup Plan Disposition: Home with Follow-up plan Please follow-up with Dr. Grajeda in 1 week. Discharge Diet: Low fat, Low Sodium, Heart Healthy Discharge Activity: Limited until seen by PCP, Home Health Phyical Therapy Patient Instructions you were hospitalized due to bradycardia secondary to tachybradycardia syndrome. You underwent successful pacemaker placement on 11/19. Please continue doxycycline for 1 week. Please follow-up with Dr. Grajeda in 1 week. Physical therapist recommended care home facility for rehabilitation which you declined. Please get home physical therapy. Follow-up Provider: Andrés Guevara MD Follow-up with PCP in: 3 weeks Provider: Herbert Grajeda MD Follow-up in: 1 week Time spent 35 minutes coordinating discharge and counseling patient copies to: Herbert Grajeda MD; Andrés Guevara MD, Melaku MD Nov 20, 2016 12:40
--- NOTE | 2016-11-20 16:52 | NUR ---
Social Work: Discharge Theology Professor met with patient and patient [id number] Iliana at bedside to discus discharge plan. Patient was aware that PT recommended a [facility] Facility as the discharge plan, but the patient declined. Patient was in agreement with discharging home with HH PT. patient stated that he has had [facility] in the past, but requested that he be referred to [facility]. SW spoke with Eliud from [facility] and notified him of the referral and gave [facility] access to the patient's chart. Patient will discharge home with [facility]. verona Michelle, PAT, ACM
== END 2016-11-20 13:30 | disposition home health service (06) | DRG 244 ==
LOC: SED 11:41 → MPC 14:42
PROVIDERS: ADMIT Internal Medicine; ATTEND Internal Medicine
PROC: 0JH606Z Insertion of Pacemaker, Dual Chamber into Chest Subcutaneous Tissue and Fascia, Open Approach (ICD-10-PCS; principal; 2016-11-19)
PROC: 02H63JZ Insertion of Pacemaker Lead into Right Atrium, Percutaneous Approach (ICD-10-PCS; 2016-11-19)
PROC: 02HK3JZ Insertion of Pacemaker Lead into Right Ventricle, Percutaneous Approach (ICD-10-PCS; 2016-11-19)
DX: I49.5 Sick sinus syndrome (principal); I44.1 Atrioventricular block, second degree; I48.0 Paroxysmal atrial fibrillation; I10 Essential (primary) hypertension; Z79.82 Long term (current) use of aspirin; I25.10 Atherosclerotic heart disease of native coronary artery without angina pectoris; M16.11 Unilateral primary osteoarthritis, right hip